=== PATIENT | male | born 1945 | race Caucasian/White ===

== ENCOUNTER 2016-08-16 07:02 | Day surgery (SDC) | payer OTHER, BC ==
[~2016-08-16] VITALS: Ht 185.4 cm; Wt 83.9 kg
[~2016-08-16 07:02] MED LIST: ALPHA-LIPOIC A300 MG PO; CALCIUM 500 +1 EACH PO; DAILY VALUE1 EACH PO; FISH OIL 1,2001 EAC4 PO; MAGNESIUM400 M1 PO; NEURONTIN400 MG PO; OMEPRAZOLE40 M1 PO; RED YEAST RICE600 M1 PO; TURMERIC500 MG PO
== END 2016-08-16 08:55 | disposition home or self-care (01) ==
LOC: PAIN 07:02 → SDC 07:30 → PAIN 07:30
PROC: 3E0S33Z Introduction of Anti-inflammatory into Epidural Space, Percutaneous Approach (ICD-10-PCS; principal; 2016-08-16)
DX: M54.12 Radiculopathy, cervical region (principal); M50.223 Other cervical disc displacement at C6-C7 level; K21.9 Gastro-esophageal reflux disease without esophagitis; R42 Dizziness and giddiness; M25.50 Pain in unspecified joint; G62.9 Polyneuropathy, unspecified
CPT/HCPCS: J1030; J2250; J3010; S0020